=== PATIENT | male | born 1995 | race Caucasian/White ===

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

== ENCOUNTER 2020-05-14 16:32 | Emergency (ER) | payer BC, MEDICAID ==
[~2020-05-14] VITALS: Ht 180.3 cm; Wt 65.8 kg
[2020-05-14 16:43] VITALS: BP 124/86
[2020-05-14] MEDS ORDERED: LIDOCAINE HCL/MPF 1% 30 ML VIAL IJ ONE (16:52)
[2020-05-14] MEDS ORDERED: LIDOCAINE /MPF 1% VIAL 5 ML VIAL ONE (16:59)
[2020-05-14] MEDS: LIDOCAINE HCL/PF 1% 30 ML VIAL TP ONE (17:39)
--- NOTE | 2020-05-14 17:47 | NUR ---
DENNIS FORD REPAIRED LAC ON RT HEEL WITH SUTURES, PT REZA WELL. APPLIED DRESSING, NO ACTIVE BLEEDING NOTED UPON LEAVING ED. Patient discharged to home in stable condition. Written and verbal after care instructions given. Patient verbalizes understanding of instruction.
== END 2020-05-14 17:48 | disposition home or self-care (01) ==
LOC: ER 16:34
DX: S91.311A Laceration without foreign body, right foot, initial encounter (principal); W21.89XA Striking against or struck by other sports equipment, initial encounter; Y93.89 Activity, other specified; Y92.89 Other specified places as the place of occurrence of the external cause; Y99.8 Other external cause status
CPT/HCPCS: 12002; 99282; A6403; J3490

== ENCOUNTER 2020-05-24 15:15 | Emergency (ER) | payer MEDICAID ==
[~2020-05-24] VITALS: Ht 180.3 cm; Wt 65.8 kg
[2020-05-24 15:20] VITALS: BP 135/85
--- NOTE | 2020-05-24 15:33 | NUR ---
5 STITCHES REMOVED. WOUND IS DRY. NO S/S OF INFECTION. NO PAIN.
== END 2020-05-24 15:45 | disposition home or self-care (01) ==
LOC: ER 15:18
DX: S91.311D Laceration without foreign body, right foot, subsequent encounter (principal); F17.200 Nicotine dependence, unspecified, uncomplicated; W26.8XXD Contact with other sharp object(s), not elsewhere classified, subsequent encounter

== ENCOUNTER 2021-02-25 21:17 | Emergency (ER) | payer MEDICAID ==
[~2021-02-25] VITALS: Ht 180.3 cm; Wt 63.5 kg
--- NOTE | 2021-02-25 21:36 | NUR ---
TO ER BED 6. AAOX4. NOT IN RESP DISTRESS. AMBULATORY. CAME IN FOR NAUSEA AND VOMMITING X 2 DAYS AFTER HEAVY DRINKING. NMO NOTED WITHDRAWAL SYMPTOMS. AWAITING MD FOR EVAL.
[2021-02-25] MEDS ORDERED: FAMOTIDINE/PF INJ 20 MG/2 ML VIAL IV ONE ×2 (21:51→22:00)
[2021-02-25] MEDS ORDERED: ONDANSETRON HCL/PF 4 MG/2 ML VIAL ONE (21:51)
[2021-02-25] MEDS ORDERED: IV NS 0.9% 1,000 ML BAG IV ONE (22:00)
[2021-02-25] MEDS ORDERED: ONDANSETRON HCL/PF - ER 4 MG/2 ML VIAL IV ONE (22:00)
[2021-02-25 22:22] LABS: BASOPHILS % (AUTO) 0.3 % (0.0-2.0); HEMATOCRIT 44 % (39-51); HEMOGLOBIN 14.7 g/dL (13.5-17.5); LYMPHOCYTES # (AUTO) 0.8 K/uL (0.8-4.8); LYMPHOCYTES % (AUTO) 8.1 % (20.0-44.0); MEAN CORPUSCULAR HGB CONC 33 g/dl (31.0-36.0); MEAN CORPUSCULAR VOLUME 94 fL (80-96); MONOCYTES # (AUTO) 0.7 K/uL (0.1-1.30); MONOCYTES % (AUTO) 6.3 % (2.0-12.0); NEUTROPHILS # (AUTO) 8.9 K/uL (1.8-8.9); NEUTROPHILS % (AUTO) 85.3 % (43.0-81.0); PLATELET COUNT (AUTO) 240 K/uL (150-450); RED BLOOD CELL COUNT(AUTO) 4.75 MIL/uL (4.5-6.0); WHITE BLOOD COUNT (AUTO) 10.4 K/uL (4.3-11.0)
[2021-02-25 22:32] LABS: CALCIUM, SERUM 9.7 mg/dL (8.5-10.1); CREATININE 0.9 mg/dL (0.6-1.3); POTASSIUM 4.1 mmol/L (3.5-5.1)
[2021-02-25 22:38] LABS: ALBUMIN 4.8 g/dL (3.4-5.0); BILIRUBIN,DIRECT 0.1 mg/dL (0.0-0.2); BILIRUBIN,TOTAL 0.5 mg/dL (0.2-1.0); TOTAL PROTEIN, SERUM 8.2 g/dL (6.4-8.2)
[2021-02-25] MEDS ORDERED: ONDA4TAB11 PO (23:06)
--- NOTE | 2021-02-25 23:13 | NUR ---
iPatient discharged to home in stable condition. Written and verbal after care instructions given. Patient verbalizes understanding of instruction.IV removed. Catheter intact and site benign. Pressure and 4x4 applied to site. No bleeding noted.
--- NOTE | 2021-02-25 23:13 | NUR ---
Pt ambulatory with a steady gait
[2021-02-25 23:17] VITALS: BP 134/76
== END 2021-02-25 23:17 | disposition home or self-care (01) ==
LOC: ER 21:19
DX: R11.2 Nausea with vomiting, unspecified (principal); K29.20 Alcoholic gastritis without bleeding; F10.10 Alcohol abuse, uncomplicated; F17.210 Nicotine dependence, cigarettes, uncomplicated; Y90.9 Presence of alcohol in blood, level not specified
CPT/HCPCS: 36415; 80048; 80076; 83690; 85025; 96361; 96374; 96375; 99284; 99406; J2405 ×2; J3490; J7030